=== PATIENT | female | born 1985 | race Caucasian/White ===

== ENCOUNTER 2017-01-21 18:56 | Outpatient (CLI) | payer SELFPAY ==
[~2017-01-21] VITALS: Ht 157.5 cm; Wt 83.4 kg
[2017-01-21] MEDS ORDERED: FER325 PO (19:10)
[2017-01-21] MEDS ORDERED: PRENAT PO (19:10)
[2017-01-21 19:11] VITALS: BP 105/58; PULSE 72; RESP 18; Ht 157.5 cm; Wt 83.4 kg
--- NOTE | 2017-01-21 20:33 | RADRPT ---
PROCEDURE: Limited obstetric ultrasound CLINICAL INDICATION: 30.4 weeks with cramping TECHNIQUE: Multiple transverse and longitudinal grayscale images of the pelvis were obtained joseph sabdominally and endovaginally.. COMPARISON: same day FINDINGS: There is a single live intrauterine gestation in a vertex position with a heart rate of 129 bp m. The cervix is closed and measures 5.9 cm in length. RPTAT: AA IMPRESSION: The cervix is closed and measures 5.9 cm in length. Physician Artur Date Time Electronically viewed and signed by Reed Christopher Physician on 01/21/2017 20:33 /
[2017-01-21 20:36] LABS: ADD UMIC NO; URINE BILIRUBIN (Dip) NEGATIVE (NEGATIVE); URINE BLOOD (Dip) NEGATIVE (NEGATIVE); URINE COLOR YELLOW (YELLOW); URINE GLUCOSE (Dip) NEGATIVE (NEGATIVE); URINE KETONES (Dip) TRACE (NEGATIVE); URINE LEUKOCYTE ESTERASE (Dip) NEGATIVE (NEGATIVE); URINE NITRITE (Dip) NEGATIVE (NEGATIVE); URINE TOTAL PROTEIN (Dip) NEGATIVE (NEGATIVE); URINE UROBILINOGEN (Dip) 0.2 E.U./dL (0.1-1.0)
--- NOTE | 2017-01-21 22:02 | TRIAGE ---
OB Triage Datetime Report Generated by CPN: 01/21/2017 22:02 Datetime: 01/21/2017 19:08 Assessment Type: Triage Maternal Assessment Level of Consciousness: Fully Conscious DTR's/Clonus: DTRs 2+; No Clonus Headache: Denies Blurred Vision: No Respiratory Effort: Unlabored; Regular Rhythm; Equal Expansion Breath Sounds, Left: Clear and Equal Breath Sounds, Right: Clear and Equal Nausea/Vomiting: Denies RUQ Epigastric Pain: Denies Lower Extremities Edema: None Degree: None Upper Extremities Edema: None Degree: None Facial Edema: None Fall Risk Assessment History of Falling: (0) No Secondary Diagnosis: (0) No Ambulatory Aid: (0) Bedrest/Nurse Assist IV Therapy: (0) No Gait: (0) Normal/Bedrest/Immobile Mental Status: (0) Oriented to Own Ability Fall Score: 0 Fall Risk Score Definition: No Risk: No action required Datetime: 01/21/2017 19:06 Time of Arrival: 01/21/2017 18:40 EGA: 30.4 Arrived By: Wheelchair Arrived From: Home Chief Complaint: pt sent from clinic for eval. of ptl Movement: Present Contractions: Irregular Contractions: Every hour Rupture of Membranes: Denies Vaginal Bleeding: None Vaginal Discharge: Denies Recent Sexual Intercouse: Yes Abdominal Trauma: Not Applicable Patient Complaints: Cramping Time Provider Notified: 01/21/2017 19:41 Provider Notified: Dr. Patrick Initial Plan: CEFM Datetime: 01/21/2017 19:00 Labor Evaluation Monitor Mode: External Heart Rate Monitor Mode: External US
--- NOTE | 2017-01-21 22:37 | QN ---
Documentation Comment 31 years old with IP at 30 weeks and 4 days presented with complaint of low back pain with radiation to the legs. Pain is intermittent, worse with moving and resolves with rest. Denies any flank pain, Decreased movement, LOF or vaginal bleeding. Denies any dysuria or urinary symptoms. PE: GA: A&O, NAD Abdomen: soft, gravid. FH consistent with GA. No CVA tenderness NST: Cat 1 rare contractions seen. Extremities: no calf tenderness, no click, no edema. UA:trace ketones FFN: Negative CL: 5.9 cm Assessment: IUP at 30 weeks and 4 days low back pain, no evidence of PTL, likely musculoskeletal Antapartum testing reassuring NST: Cat 1 DC home PTL precaution given and [facility] follow up with OB clinic in 1-2 days recommended Rest and tylenol PRN pain Adequate PO Hydration Patient verbalized understanding RICARDO FRANCOIS MD January 21, 2017 22:37
== END 2017-01-21 22:00 | disposition home or self-care (01) ==
LOC: OBT 18:56 → EDBD 18:56 → L-D 18:56 → OBT 22:00
PROVIDERS: ATTEND Obstetrics & Gynecology
DX: O26.893 Other specified pregnancy related conditions, third trimester (principal); M54.5 Low back pain; Z3A.30 30 weeks gestation of pregnancy
CPT/HCPCS: 76817; 81003; 82731; G0463